=== PATIENT | female | born 1985 | race Caucasian/White ===

== ENCOUNTER → 2023-01-17 15:15 | Outpatient (BNVA) | payer OTHER, SELFPAY | PROVIDERS: PCP Nurse Practitioner Family; Visit Provider Physician Assistant | DX: Z13.89 Encounter for screening for other disorder (principal) ==

== ENCOUNTER 2023-09-12 10:50 | Outpatient (AMB) | payer OTHER, SELFPAY ==
--- NOTE | 2023-09-12 10:53 | A.OFFVIS_ITS ---
Intake Vital Signs 3 09/12/23 11:05 Height 5 ft 1 in Weight 211 lb 6 oz BMI 39.9 BP 148/70 H Blood Pressure Location Lt brachial Position Sitting Pulse 73 Intake Visit Reasons: umbilical hernia Intake Note: Patient is seen in office for evaluation and treatment of an umbilical hernia. Pt c/o: feels a lump in the umbilical area, had seen Dr Amador in the past aprox 6 yrs, has increase since, painful, denies nausea, vomit, diarrhea, constipation self refer [employer] Required: No Accompanied by: Self / Same As Patient Allergies Iodinated Contrast Media [IV CONTRAST] Allergy (Severe, Verified 09/12/23 11:01) HIVES gentamicin [GENTAMICIN] Allergy (Unknown, Verified 09/12/23 11:01) HIVES ibuprofen [From MOTRIN] Allergy (Unknown, Verified 09/12/23 11:01) UNKNOWN, hives nut - unspecified [nut] Allergy (Unknown, Verified 09/12/23 11:01) UNKNOWN penicillin G Allergy (Unknown, Verified 09/12/23 11:01) rash Penicillins [PENICILLINS] Allergy (Unknown, Verified 09/12/23 11:01) UNKNOWN sesame oil [SESAME OIL] Allergy (Unknown, Verified 09/12/23 11:01) UNKNOWN Sulfa (Sulfonamide Antibiotics) [SULFA (SULFONAMIDE ANTIBIOTICS)] Allergy (Unknown, Verified 09/12/23 11:01) UNKNOWN sulfamethoxazole Allergy (Unknown, Verified 09/12/23 11:01) rash gentamycin Allergy (Unknown, Uncoded 09/12/23 11:01) hives IVP dye Allergy (Unknown, Uncoded 09/12/23 11:01) hives nuts and sesame Allergy (Unknown, Uncoded 09/12/23 11:01) throat itching/swelling Medication List - Last Reconciled 09/12/23 by Ike Moran MD sertraline 25 mg PO DAILY HPI HPI Comments 2 History of Present Illness0 Details 38-year-old female patient presenting fo r evaluation of a ventral hernia. She was previously evaluated by Dr. Amador for the same condition and the ventral hernia identified. She never ended up having surgery to repair the hernia but returns today noting some increased discomfort. She occasionally has some nausea without vomiting. She denies recent bowel changes or blood per rectum. She has a previous history of a laparoscopic cholecystectomy but also underwent x2. The pain increases with pressure on the hernia especially when leaning against the countertop. PFSH Surgical History Hx of tympanostomy tubes Hx of cholecystectomy Hx of tonsillectomy Hx of section Family History Mother Hypertension Father Heart disease Hypertension Sister No problems noted. Son No problems noted. Daughter Asthma Social History Alcohol intake: current Alcohol intake frequency: holidays/special occasions only Patient Tobacco Use Status: Never used Tobacco Review of Systems Const All systems reviewed & are unremarkable except as noted in HPI and below Denies chills, Denies fever(s), Denies headache(s), Denies poor appetite and Denies weakness ENT Denies headache(s) Card Denies chest pain, Denies irregular heart rhythm, Denies palpitations and Denies dyspnea Resp Denies cough, Denies excessive phlegm production and Denies dyspnea GI Denies abdominal pain, Denies bloating, Denies change in bowel habits, Denies constipation, Denies heartburn, Denies diarrhea, Denies nausea and Denies vomiting Denies urinary frequency Musc Denies back pain, Denies muscle weakness and Denies numbness Skin/Breast Denies changing lesions and Denies unusual bruising Neuro Denies headache(s), Denies numbness, Denies paresthesias and Denies weakness Psych Denies anxiety and Denies depression Endo Denies palpitations [place]/Lymph Denies lymphadenopathy Physical Exam Vital Signs: Last Vital Signs Pulse 73 09/12/23 11:05 BP 148/70 H 09/12/23 11:05 BMI result Body Mass Index 39.9 Const General: cooperative and no acute distress Nutritional Appearance: well nourished Orientation/consciousness: patient oriented x3 Limitations: no limitations HEENT Head: Yes normocephalic and Yes atraumatic Ears: hearing grossly normal bilaterally Resp Effort & Inspection: normal respiratory effort, no audible wheezes, no cough and no respiratory distress Cardio Jugular venous distension: no JVD GI Inspection: Yes normal to inspection Palpation (GI): Soft to palpation, nontender, no guarding, not rigid and No hepatosplenomegaly present Abdomen image: 2 1. 3 cm palpable hernia located just above the umbilicus, reduces in the supine position. Increases with Valsalva maneuvers. Skin Other: Warm, dry, no rash Neuro General: patient oriented x3 Extrem General: Yes no clubbing, cyanosis or edema Assessment & Plan Assessment & Plan (1) Ventral hernia: Comment: 3 cm, reducible Code(s): K43.9 - Ventral hernia without obstruction or gangrene Plan 38-year-old female patient presenting with a reducible ventral hernia measuring approximately 3 cm in diameter. I recommended a repair with mesh. After discussion of the procedure, risks, and alternatives, she consents to a repair of the ventral hernia with mesh. This will be scheduled as a short-stay surgery at her earliest convenience. Coding Level of Care Code New Pt Level 4 (08701) Diagnoses Ventral hernia K43.9
[2023-09-12 11:05] VITALS: BP 148/70; PULSE 73; BMI 39.9
== END 2023-09-12 11:27 | disposition home or self-care (01) ==
PROVIDERS: PCP Nurse Practitioner Family; Visit Provider Surgery
DX: K43.9 Ventral hernia without obstruction or gangrene (principal)
CPT/HCPCS: 99204

== ENCOUNTER → 2023-09-12 10:50 | Outpatient (BNVA) | payer OTHER, SELFPAY | PROVIDERS: PCP Nurse Practitioner Family; Visit Provider Surgery ==

== ENCOUNTER 2023-10-09 07:22 | Day surgery (SDC) | payer OTHER, SELFPAY ==
[2023-10-07 07:40] VITALS: BMI 39.9
--- NOTE | 2023-10-08 11:48 | P.CONAN_ITS ---
Documented by User: Heavenly Hines NP 10/08/23 11:48 HPI - Anesthesia Eval Consult details Narrative: 38yo F for Hernia Repair Ventral reducible with mesh PMFSH Active Problems Active Problems: All Active Problems (Updated 09/12/23 @ 11:14 by Ike Moran MD) Ventral hernia (Acute) Family History Family History Mother Hypertension Father Heart disease Hypertension Sister No problems noted. Son No problems noted. Daughter Asthma Surgical History Surgical History Hx of tympanostomy tubes Hx of cholecystectomy Hx of tonsillectomy Hx of section Social History Social History Alcohol intake: current Alcohol intake frequency: holidays/special occasions only Patient Tobacco Use Status: Never used Tobacco Use of substances other than those prescribed or required for medical reasons: No Are you DNR?: No Advance Directives: No Advance Directives Information Provided: Yes Meds Allergies Allergy/AdvReac Type Severity Reaction Status Date / Time Iodinated Contrast Media Allergy Severe HIVES Verified 09/12/23 11:01 [IV CONTRAST] gentamicin [GENTAMICIN] Allergy Unknown HIVES Verified 09/12/23 11:01 ibuprofen [From MOTRIN] Allergy Unknown UNKNOWN, Verified 09/12/23 11:01 hives nut - unspecified [nut] Allergy Unknown UNKNOWN Verified 09/12/23 11:01 penicillin G Allergy Unknown rash Verified 09/12/23 11:01 Penicillins [PENICILLINS] Allergy Unknown UNKNOWN Verified 09/12/23 11:01 sesame oil [SESAME OIL] Allergy Unknown UNKNOWN Verified 09/12/23 11:01 Sulfa (Sulfonamide Allergy Unknown UNKNOWN Verified 09/12/23 11:01 Antibiotics) [SULFA (SULFONAMIDE ANTIBIOTICS)] sulfamethoxazole Allergy Unknown rash Verified 09/12/23 11:01 gentamycin Allergy Unknown hives Uncoded 09/12/23 11:01 IVP dye Allergy Unknown hives Uncoded 09/12/23 11:01 nuts and sesame Allergy Unknown throat Uncoded 09/12/23 11:01 itching/swelling Home Medications Medication Instructions Recorded Confirmed Last Taken Type sertraline 25 mg tablet 25 mg PO DAILY 09/12/23 09/12/23 Unknown History Exam Height,Weight and Vital Signs: Height 5 ft 1 in Weight 95.708 kg Assessment and Plan Assessment Anesthesia Assessment: Chart Reviewed Documented by User: Victoria Davis MD 10/09/23 09:17 PMFSH Active Problems Active Problems: All Active Problems (Updated 10/09/23 @ 08:55 by Victoria Davis MD) Ventral hernia (Acute) Anxiety Increased BMI 39.2 Denies HEIDY, GERD Family History Family History Mother Hypertension Father Heart disease Hypertension Sister No problems noted. Son No problems noted. Daughter Asthma Family history of problems with anesthesia: No Surgical History Surgical History Hx of tympanostomy tubes Hx of cholecystectomy Hx of tonsillectomy Hx of section History of Problems with Anesthesia: No Social History Social History Alcohol intake: current Alcohol intake frequency: holidays/special occasions only Patient Tobacco Use Status: Never used Tobacco Use of substances other than those prescribed or required for medical reasons: No Are you DNR?: No Advance Directives: No Advance Directives Information Provided: Yes Meds Allergies Allergy/AdvReac Type Severity Reaction Status Date / Time Iodinated Contrast Media Allergy Severe HIVES Verified 09/12/23 11:01 [IV CONTRAST] gentamicin [GENTAMICIN] Allergy Unknown HIVES Verified 09/12/23 11:01 ibuprofen [From MOTRIN] Allergy Unknown UNKNOWN, Verified 09/12/23 11:01 hives nut - unspecified [nut] Allergy Unknown UNKNOWN Verified 09/12/23 11:01 penicillin G Allergy Unknown rash Verified 09/12/23 11:01 Penicillins [PENICILLINS] Allergy Unknown UNKNOWN Verified 09/12/23 11:01 sesame oil [SESAME OIL] Allergy Unknown UNKNOWN Verified 09/12/23 11:01 Sulfa (Sulfonamide Allergy Unknown UNKNOWN Verified 09/12/23 11:01 Antibiotics) [SULFA (SULFONAMIDE ANTIBIOTICS)] sulfamethoxazole Allergy Unknown rash Verified 09/12/23 11:01 gentamycin Allergy Unknown hives Uncoded 09/12/23 11:01 IVP dye Allergy Unknown hives Uncoded 09/12/23 11:01 nuts and sesame Allergy Unknown throat Uncoded 09/12/23 11:01 itching/swelling Home Medications Medication Instructions Recorded Confirmed Last Taken Type sertraline 25 mg tablet 25 mg PO DAILY 09/12/23 09/12/23 Unknown History Exam Height,Weight and Vital Signs: Height 5 ft 1 in Weight 95.708 kg Vital Signs Temp Pulse Resp BP Pulse Ox O2 Del Method 10/09/23 08:06 99.1 F 78 16 116/62 96 Room Air Pertinent Lab Results Pertinent Lab Results: Lab Results 10/09/23 Range/Units 07:50 Urine Test NEGATIVE (NEGATIVE) Airway Mallampati Class: II TM Dist: >3cm Neck ROM: Full Loose/Missing/Broken Teeth: No (Denies broken, loose, missing teeth) Heart: RRR Lungs: CTAB Assessment and Plan Assessment Anesthesia Assessment: Anesthesia Plan Discussed Final Anesthetic Review Family History of Problems with Anesthesia: No History of Problems with Anesthesia: No NPO: Yes ASA Class: II Final Preanesthetic Review: No Changes in Pt Med Stat, Meds/Allgs Chart Rev iewed, Consent Obtained/Reviewed and Anes Risks/Benef Reviewed Patient Risk: Intermediate Procedure Risk: Intermediate Assessment/Block/Sedation in SS: Assess/Block/Sedation-SS Anesthetic Plan Anesthetic Plan: GA Disposition: Standard PACU
[2023-10-09 07:48] VITALS: BMI 39.2
[2023-10-09 08:00] LABS: UPreg QC Valid YES; Urine Pregnancy NEGATIVE (NEGATIVE)
[2023-10-09 08:06] VITALS: BP 116/62; PULSE 78; RESP 16; TEMP 37.3; O2SAT 96
[2023-10-09] MEDS: Lactated Ringers 1,000 ML 100 ML IVCONT (08:23)
[2023-10-09] MEDS: vancomycin HCL 1,500 MG in 0.9 % Sodium Chloride 500 ML 333.33 MG IV (08:26)
--- NOTE | 2023-10-09 08:40 | MHC.SHP ---
Pre-Procedural Eval Section A Date of Service: 10/09/23 The patient is an INPATIENT: No Changes since office visit: Yes Patient answered all questions; No Cold of Flu in the past 2 weeks, No New Medical Problems and No Changes in Medication The History & Physical has been completed within 30 days and I have reviewed it.: Yes Section B Chief Complaint: Ventral hernia without obstruction or gangrene Allergies: Allergies Allergy/AdvReac Type Severity Reaction Status Date / Time Iodinated Contrast Media Allergy Severe HIVES Verified 09/12/23 11:01 [IV CONTRAST] gentamicin [GENTAMICIN] Allergy Unknown HIVES Verified 09/12/23 11:01 ibuprofen [From MOTRIN] Allergy Unknown UNKNOWN, Verified 09/12/23 11:01 hives nut - unspecified [nut] Allergy Unknown UNKNOWN Verified 09/12/23 11:01 penicillin G Allergy Unknown rash Verified 09/12/23 11:01 Penicillins [PENICILLINS] Allergy Unknown UNKNOWN Verified 09/12/23 11:01 sesame oil [SESAME OIL] Allergy Unknown UNKNOWN Verified 09/12/23 11:01 Sulfa (Sulfonamide Allergy Unknown UNKNOWN Verified 09/12/23 11:01 Antibiotics) [SULFA (SULFONAMIDE ANTIBIOTICS)] sulfamethoxazole Allergy Unknown rash Verified 09/12/23 11:01 gentamycin Allergy Unknown hives Uncoded 09/12/23 11:01 IVP dye Allergy Unknown hives Uncoded 09/12/23 11:01 nuts and sesame Allergy Unknown throat Uncoded 09/12/23 11:01 itching/swelling Plan Diagnosis/Plan: Unchanged I have reviewed the history and physical and performed a pertinent physical examination on my patient. No changes have occurred unless specified. Time Spent With Patient Time: Total time managing care of this patient today ____ minutes.
--- NOTE | 2023-10-09 10:17 | P.OP_ITS ---
Operative Note Operative Note Date of Service: 10/09/23 Narrative: Preoperative diagnosis: Ventral hernia, 2 cm, reducible Postoperative diagnosis: same Procedure: repair of ventral hernia with mesh Surgeon: Ike Moran MD Data Coder Operator: none Anesthesia: general LMA Indications for procedure: 38-year-old female patient presenting with a lump in the upper abdomen which increases in size with lifting and straining and reduces with light pressure. On examination patient is found to have a 2 cm reducible ventral hernia located above the umbilicus Operative findings: 2 cm reducible ventral hernia Specimen:none Estimated blood loss:< 2 ml Complications:none Procedure details: the patient was brought to the OR and placed in a supine position. After administering general anesthesia patient's abdomen was prepped with ChloraPrep and draped in a sterile fashion. A surgical time-out was called the consent confirmed. Patient received preoperative antibiotics and Venodyne boots were in place. Local anesthesia consisting of 0.5% Sensorcaine was infiltrated in the midline just above the umbilicus. Incision was then made with a scalpel and carried out through subcutaneous tissue up to the fascia. The hernia sac was identified dissected circumferentially. Umbilical skin was dissected off the lower portion of the hernia sac. The sac was then dissected circumferentially into the preperitoneal space. The sac was reduced into the abdominal cavity. No incarcerated bowel was noted within the sac. The preperitoneal space was further defined using blunt dissection and electrocautery. Hemostasis was assured all times using electrocautery. The defect measured approximately 2 cm. A 4.6 cm Ventralex mesh was then obtained. This was deployed within the preperitoneal space and secured in 4 quadrants using 1 Tycron suture. The fascia was then closed over the mesh using [id number] 1 Tycron sutures. The wounds we regained with saline solution and suctioned dry. Local anesthesia was then further infiltrated in the subcutaneous tissue and muscular tissue. Umbilical skin was then reconnected to the fascia using a 3-0 Polysorb suture. Subcutaneous tissue and dermis were then reapproximated using interrupted 3-0 Polysorb sutures. Skin was closed using a running subcuticular 4-0 Polysorb suture. The patient tolerated the procedure well. Sponge, instrument, and counts reported as correct. The patient was transferred to PACU in stable condition.
[2023-10-09 10:20] VITALS: BP 127/73; PULSE 91; RESP 18; TEMP 36.6; O2SAT 100
[2023-10-09 10:25] VITALS: BP 126/75; PULSE 88; RESP 16; O2SAT 97
[2023-10-09 10:30] VITALS: BP 126/76; PULSE 92; RESP 16; O2SAT 97
[2023-10-09 10:35] VITALS: BP 133/74; PULSE 87; RESP 16; O2SAT 97
[2023-10-09 10:50] VITALS: BP 131/76; PULSE 87; RESP 16; TEMP 36.6; O2SAT 97
== END 2023-10-09 11:33 | disposition home or self-care (01) ==
PROVIDERS: Nurse Practitioner; PCP Registered Nurse; Visit Provider Surgery
PROC: (CPT 49591; principal; 2023-10-09 09:10)
DX: K43.9 Ventral hernia without obstruction or gangrene (principal); Z88.0 Allergy status to penicillin; Z88.2 Allergy status to sulfonamides; Z88.8 Allergy status to other drugs, medicaments and biological substances; Z91.041 Radiographic dye allergy status; Z90.49 Acquired absence of other specified parts of digestive tract; Z98.890 Other specified postprocedural states
CPT/HCPCS: 49591; 81025; C1781; J0665; J1100; J2250; J2405; J2704; J3010; J3371

== ENCOUNTER → 2023-10-09 07:22 | Outpatient (BNV) | payer OTHER, SELFPAY | PROVIDERS: PCP Registered Nurse; Visit Provider Surgery | DX: K43.9 Ventral hernia without obstruction or gangrene (principal) | CPT/HCPCS: 49591 ==

== ENCOUNTER 2023-10-17 14:53 | Outpatient (AMB) | payer OTHER, SELFPAY ==
[2023-10-17 15:00] VITALS: BP 122/72; BMI 39.2
--- NOTE | 2023-10-17 15:00 | MHC.OFFVIS ---
Intake Vital Signs 10/17/23 15:00 Height 5 ft 1 in Weight 207 lb 3.752 oz BMI 39.2 BP 122/72 Blood Pressure Location Lt brachial Position Sitting Intake Visit Reasons: S/P ventral hernia repair w/ mesh Intake Note: Patient is seen in office for post op assessment post ventral hernia repair. Pt c/o: area feels swollen, denies any other concerns School Resource Officer Required: No Accompanied by: Self / Same As Patient Allergies Iodinated Contrast Media [IV CONTRAST] Allergy (Severe, Verified 10/17/23 15:01) HIVES gentamicin [GENTAMICIN] Allergy (Unknown, Verified 10/17/23 15:01) HIVES ibuprofen [From MOTRIN] Allergy (Unknown, Verified 10/17/23 15:01) UNKNOWN, hives nut - unspecified [nut] Allergy (Unknown, Verified 10/17/23 15:01) UNKNOWN penicillin G Allergy (Unknown, Verified 10/17/23 15:01) rash Penicillins [PENICILLINS] Allergy (Unknown, Verified 10/17/23 15:01) UNKNOWN sesame oil [SESAME OIL] Allergy (Unknown, Verified 10/17/23 15:01) UNKNOWN Sulfa (Sulfonamide Antibiotics) [SULFA (SULFONAMIDE ANTIBIOTICS)] Allergy (Unknown, Verified 10/17/23 15:01) UNKNOWN sulfamethoxazole Allergy (Unknown, Verified 10/17/23 15:01) rash gentamycin Allergy (Unknown, Uncoded 10/17/23 15:01) hives IVP dye Allergy (Unknown, Uncoded 10/17/23 15:01) hives nuts and sesame Allergy (Unknown, Uncoded 10/17/23 15:01) throat itching/swelling HPI HPI Comments History of Present Illness Details Patient returns 1 week following repair of a ventral hernia with mesh. She tolerated the procedure well but does note some swelling in the area of the incision after returning to work today. She denies any nausea, vomiting, fever or chills. [facility] Surgical History S/P repair of ventral hernia (10/09/23) Hx of tympanostomy tubes Hx of cholecystectomy Hx of tonsillectomy Hx of section Family History Mother Hypertension Father Heart disease Hypertension Sister No problems noted. Son No problems noted. Daughter Asthma Social History Alcohol intake: current Alcohol intake frequency: holidays/special occasions only Patient Tobacco Use Status: Never used Tobacco Physical Exam Vital Signs: Last Vital Signs BP 122/72 10/17/23 15:00 BMI result Body Mass Index 39.2 Const General: comfortable Nutritional Appearance: well nourished Orientation/consciousness: patient oriented x3 Resp Effort & Inspection: normal respiratory effort GI Other: Soft, nondistended, well-healed incision in the midline without redness or discharge. Possible small seroma below the incision. No erythema, no evidence of infection. Skin General skin exam: no rashes or lesions noted Neuro General: patient oriented x3 Assessment & Plan Assessment & Plan (1) Ventral hernia: Comment: 3 cm, reducible Code(s): K43.9 - Ventral hernia without obstruction or gangrene Qualifiers: Obstruction and gangrene presence: without obstruction or gangrene Qualified Code(s): K43.9 - Ventral hernia without obstruction or gangrene Plan Patient returns 1 week following repair of a ventral hernia with mesh. She tolerated the procedure well the wounds are healing nicely. She should continue to avoid lifting greater than 10 lb and return in 1 month for follow-up examination. Coding Level of Care Code Global (22506) Diagnoses Ventral hernia without obstruction or gangrene K43.9 Obstruction and gangrene presence: without obstruction or gangrene
== END 2023-10-17 15:04 | disposition home or self-care (01) ==
PROVIDERS: PCP Nurse Practitioner Family; Visit Provider Surgery
DX: K43.9 Ventral hernia without obstruction or gangrene (principal)
CPT/HCPCS: 99212

== ENCOUNTER → 2023-10-17 14:53 | Outpatient (BNVA) | payer OTHER, SELFPAY | PROVIDERS: PCP Nurse Practitioner Family; Visit Provider Surgery ==

== ENCOUNTER 2023-11-14 14:29 | Outpatient (AMB) | payer OTHER, SELFPAY ==
--- NOTE | 2023-11-14 14:34 | MHC.OFFVIS ---
Intake Vital Signs 11/14/23 14:39 Height 5 ft 1 in Weight 224 lb BMI 42.3 BP 135/74 Blood Pressure Location Lt brachial Position Sitting Pulse 82 Intake Visit Reasons: S/P ventral hernia repair w/ mesh Intake Note: Patient is seen in office for one month follow up visit, post ventral hernia repair. 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 Accompanied by: Self / Same As Patient Allergies Iodinated Contrast Media [IV CONTRAST] Allergy (Severe, Verified 11/14/23 14:39) HIVES gentamicin [GENTAMICIN] Allergy (Unknown, Verified 11/14/23 14:39) HIVES ibuprofen [From MOTRIN] Allergy (Unknown, Verified 11/14/23 14:39) UNKNOWN, hives nut - unspecified [nut] Allergy (Unknown, Verified 11/14/23 14:39) UNKNOWN penicillin G Allergy (Unknown, Verified 11/14/23 14:39) rash Penicillins [PENICILLINS] Allergy (Unknown, Verified 11/14/23 14:39) UNKNOWN sesame oil [SESAME OIL] Allergy (Unknown, Verified 11/14/23 14:39) UNKNOWN Sulfa (Sulfonamide Antibiotics) [SULFA (SULFONAMIDE ANTIBIOTICS)] Allergy (Unknown, Verified 11/14/23 14:39) UNKNOWN sulfamethoxazole Allergy (Unknown, Verified 11/14/23 14:39) rash gentamycin Allergy (Unknown, Uncoded 11/14/23 14:39) hives IVP dye Allergy (Unknown, Uncoded 11/14/23 14:39) hives nuts and sesame Allergy (Unknown, Uncoded 11/14/23 14:39) throat itching/swelling Medication List - Last Reconciled 11/14/23 by Ike Moran MD sertraline 25 mg PO DAILY HPI HPI Comments History of Present Illness Details Patient returns 1 month following repair of a ventral hernia with mesh. She tolerated the procedure well but does note some swelling in the area of the incision after returning to work today. She denies any nausea, vomiting, fever or chills. [facility] Surgical History S/P repair of ventral hernia (10/09/23) Hx of tympanostomy tubes Hx of cholecystectomy Hx of tonsillectomy Hx of section Family History Mother Hypertension Father Heart disease Hypertension Sister No problems noted. Son No problems noted. Daughter Asthma Social History Alcohol intake: current Alcohol intake frequency: holidays/special occasions only Patient Tobacco Use Status: Never used Tobacco Physical Exam Vital Signs: Last Vital Signs Pulse 82 11/14/23 14:39 BP 135/74 11/14/23 14:39 BMI result Body Mass Index 42.3 Const General: comfortable Nutritional Appearance: well nourished Orientation/consciousness: patient oriented x3 Resp Effort & Inspection: normal respiratory effort GI Other: Soft, nondistended, well-healed incision in the midline without redness or discharge. No erythema, no evidence of infection. Skin General skin exam: no rashes or lesions noted Neuro General: patient oriented x3 Assessment & Plan Assessment & Plan (1) Ventral hernia: Comment: 3 cm, reducible Code(s): K43.9 - Ventral hernia without obstruction or gangrene Qualifiers: Obstruction and gangrene presence: without obstruction or gangrene Qualified Code(s): K43.9 - Ventral hernia without obstruction or gangrene Plan 38-year-old female patient status post repair of a ventral hernia with mesh 1 month ago. Her wounds are well healed without evidence of hernia recurrence, seroma or hematoma. She may resume normal activity without restrictions and should follow up as needed. Coding Level of Care Code Global (99879) Diagnoses Ventral hernia without obstruction or gangrene K43.9 Obstruction and gangrene presence: without obstruction or gangrene
[2023-11-14 14:39] VITALS: BP 135/74; PULSE 82; BMI 42.3
== END 2023-11-14 14:42 | disposition home or self-care (01) ==
PROVIDERS: PCP Nurse Practitioner Family; Visit Provider Surgery
DX: K43.9 Ventral hernia without obstruction or gangrene (principal)
CPT/HCPCS: 99212

== ENCOUNTER → 2023-11-14 14:29 | Outpatient (BNVA) | payer OTHER, SELFPAY | PROVIDERS: PCP Nurse Practitioner Family; Visit Provider Surgery ==